=== PATIENT | female | born 1995 | race Two or more races ===

== ENCOUNTER 2024-03-09 04:41 | Day surgery (SDC) | payer OTHER ==
[2024-03-08 16:30] VITALS: BMI 38.2
[2024-03-09 11:54] VITALS: RESP 18
[2024-03-09 11:54] LABS: BASO % 0.8 % (0-2.0); EOS % 7.3 % (0-4.5); HEMOGLOBIN 13.4 GM/dL (10.7-15.3); LYMPH % 31.6 % (8-40); MCHC 33.6 g/dl (32.0-36.0); MEAN CELL VOLUME 80.3 fl (80-96); MEAN PLT VOLUME 7.9 fl (7.5-11.1); MONO % 5.5 % (3.8-10.2); NEUT % 54.8 % (42.8-82.8); PLATELET COUNT 403 10^3/uL (134-434); RBC 4.98 M/mm3 (3.60-5.2); RDW 14.3 % (11.6-15.6)
[2024-03-09 12:00] LABS: INR 1.05 (0.83-1.09); PROTHROMBIN TIME (PATIENT) 11.8 SEC (9.7-13.0)
[2024-03-09 12:02] LABS: ACTIVATED PTT 31.3 SECONDS (25.2-36.5)
[2024-03-09 12:09] LABS: CALCIUM 9.4 mg/dL (8.5-10.1)
[2024-03-09 12:12] LABS: CREATININE 0.7 mg/dL (0.55-1.3)
[2024-03-09 14:31] VITALS: BP 118/70; PULSE 68; TEMP 97.6
[2024-03-09 15:10] LABS: BF GLUCOSE (CSF ONLY) 50 mg/dL (40-70)
[2024-03-09 15:46] LABS: CSF APPEARANCE CLEAR (CLEAR); CSF COLOR COLORLESS (COLORLESS); CSF WBC 0 mm3 (0-5)
[2024-03-10 08:11] LABS: HOMOCYSTINE-PLASMA OR SERUM 12.5 umol/L (0.0-14.5)
[2024-03-13 17:06] LABS: ALPHA-2-GLOBULIN,CSF 4.2 % (2.7-8.2); BETA GLOBULIN,CSF 14.1 % (11.8-21.7); GAMMA GLOBULIN,CSF 13.3 % (2.8-8.5); M-SPIKE CSF Not Observed % (Not Observed); PRE-ALBUMIN CSF 2.9 % (2.2-7.7)
== END 2024-03-09 15:02 | disposition home or self-care (01) ==
LOC: JRADIR 04:41
PROVIDERS: ATTEND Psychiatry & Neurology Psychiatry
PROC: 00JU3ZZ Inspection of Spinal Canal, Percutaneous Approach (ICD-10-PCS; principal; 2024-03-09)
DX: R51.9 Headache, unspecified (principal)
CPT/HCPCS: 36415; 62272; 80048; 82306; 82607; 82784; 82945; 83090; 83873; 83916; 84157; 84166; 84703; 85025; 85610; 85730; 86780; 87070; 87205

== ENCOUNTER 2024-03-23 17:57 | Inpatient (IN) | payer OTHER ==
[2024-03-23 19:52] LABS: BASO % 2.2 % (0-2.0); EOS % 6.9 % (0-4.5); HEMATOCRIT 41.2 % (32.4-45.2); HEMOGLOBIN 13.8 GM/dL (10.7-15.3); LYMPH % 38.9 % (8-40); MCH 26.9 pg (25.7-33.7); MCHC 33.6 g/dl (32.0-36.0); MEAN CELL VOLUME 80.1 fl (80-96); MEAN PLT VOLUME 7.8 fl (7.5-11.1); MONO % 5.1 % (3.8-10.2); NEUT % 46.9 % (42.8-82.8); PLATELET COUNT 405 10^3/uL (134-434); RBC 5.14 M/mm3 (3.60-5.2); RDW 14.6 % (11.6-15.6); WHITE BLOOD COUNT 7.9 K/mm3 (4.0-10.0)
[2024-03-23] MEDS ORDERED: methylPREDNISolone NA SUCC 1000 MG/8 ML VIAL ONE (20:15)
[2024-03-23 20:18] LABS: POTASSIUM 3.9 mmol/L (3.5-5.1)
[2024-03-23 20:21] LABS: ALBUMIN 3.8 g/dl (3.4-5.0); BLOOD UREA NITROGEN 8.4 mg/dL (7-18); CALCIUM 9.1 mg/dL (8.5-10.1)
[2024-03-23 20:23] LABS: CREATININE 0.7 mg/dL (0.55-1.3)
[2024-03-23] MEDS: methylPREDNISolone NA SUCC 1000 MG/8 ML VIAL IVPB ONE (20:25)
[2024-03-23 20:26] LABS: BILIRUBIN,TOTAL 0.4 mg/dL (0.2-1); TOT PROT 8.1 g/dl (6.4-8.2)
[2024-03-23 22:19] LABS: URINE APPEARANCE CLEAR; URINE BILIRUBIN NEGATIVE (NEGATIVE); URINE COLOR YELLOW; URINE GLUCOSE (UA) NEGATIVE (NEGATIVE); URINE KETONE NEGATIVE (NEGATIVE); URINE LEUK ESTERASE NEGATIVE (NEGATIVE); URINE NITRITE NEGATIVE (NEGATIVE); URINE PROTEIN NEGATIVE (NEGATIVE); URINE UROBILINOGEN 0.2 mg/dL (0.2-1.0)
[2024-03-23] MEDS: TOPIRAMATE 25 MG TABLET PO SCH (23:18)
[2024-03-24 01:12] VITALS: BMI 38.7
[2024-03-24] MEDS: PATIENT'S OWN MEDICATION (NON-FORMULARY) (Rizatriptan Benzoate [Rizatriptan] 10 MG Tablet) PO SCH (03:41)
[2024-03-24 07:05] LABS: HEMATOCRIT 39.1 % (32.4-45.2); HEMOGLOBIN 13.3 GM/dL (10.7-15.3); MCH 27.3 pg (25.7-33.7); MEAN CELL VOLUME 80.1 fl (80-96); MEAN PLT VOLUME 7.8 fl (7.5-11.1); PLATELET COUNT 399 10^3/uL (134-434); RBC 4.88 M/mm3 (3.60-5.2); RDW 14.1 % (11.6-15.6)
[2024-03-24 07:25] LABS: POTASSIUM 3.9 mmol/L (3.5-5.1)
[2024-03-24 07:31] LABS: BLOOD UREA NITROGEN 10.2 mg/dL (7-18); CALCIUM 9.6 mg/dL (8.5-10.1)
[2024-03-24 07:32] LABS: MAGNESIUM 2.2 mg/dL (1.8-2.4)
[2024-03-24 07:35] LABS: CREATININE 0.7 mg/dL (0.55-1.3)
[2024-03-24] MEDS: PANTOPRAZOLE 40 MG TABLET PO SCH (16:06)
[2024-03-24] MEDS: INSULIN ASPART SLIDING SCALE (NOVOLOG) 1 VIAL SQ SCH (16:10)
[2024-03-24] MEDS: PATIENT'S OWN MEDICATION (NON-FORMULARY) (Rizatriptan Benzoate [Rizatriptan] 10 MG Tablet) PO PRN (17:44)
[2024-03-24] MEDS: DEXAMETHASONE SOD PHOSPHATE 4 MG/1 ML VIAL IVPUSH SCH (17:47)
[2024-03-27 09:09] LABS: BASO % 0.1 % (0-2.0); HEMATOCRIT 39.6 % (32.4-45.2); HEMOGLOBIN 12.9 GM/dL (10.7-15.3); LYMPH % 20.1 % (8-40); MCH 26.4 pg (25.7-33.7); MCHC 32.6 g/dl (32.0-36.0); MEAN PLT VOLUME 7.7 fl (7.5-11.1); MONO % 5.7 % (3.8-10.2); NEUT % 74.1 % (42.8-82.8); PLATELET COUNT 481 10^3/uL (134-434); RBC 4.89 M/mm3 (3.60-5.2); RDW 14.2 % (11.6-15.6); WHITE BLOOD COUNT 11.4 K/mm3 (4.0-10.0)
[2024-03-27 09:25] LABS: CHLORIDE 113 mmol/L (98-107); POTASSIUM 4.2 mmol/L (3.5-5.1); SODIUM 139 mmol/L (136-145)
[2024-03-27] MEDS: HEPARIN NA (PORCINE) 5,000 UNITS/ML 1ML VIAL SQ SCH (09:27)
[2024-03-27 09:28] LABS: ALBUMIN 3.3 g/dl (3.4-5.0); ANION GAP 3 mmol/L (4-13); CALCIUM 8.8 mg/dL (8.5-10.1); CO2 23 mmol/L (21-32); GLUCOSE,RANDOM 96 mg/dL (74-106); MAGNESIUM 2.3 mg/dL (1.8-2.4)
[2024-03-27 09:31] LABS: CREATININE 0.7 mg/dL (0.55-1.3); SGOT/AST 6 U/L (15-37); SGPT/ALT 23 U/L (13-61)
[2024-03-27 09:33] LABS: BILIRUBIN,TOTAL 0.3 mg/dL (0.2-1); TOT PROT 7.6 g/dl (6.4-8.2)
[2024-03-27 09:34] LABS: ALK PHOS 66 U/L (45-117)
[2024-03-27 10:48] LABS: ERYTHROCYTE SEDIMENTATION RATE 21 mm/hr (0-20)
[2024-03-27 14:23] VITALS: RESP 18
[2024-03-28] MEDS: POLYETHYLENE GLYCOL (HEALTHYLAX) 3350 17 GM PACKET PO PRN (06:25)
[2024-03-30 09:39] VITALS: BP 130/82; PULSE 95; TEMP 98.2
== END 2024-03-30 13:37 | disposition home or self-care (01) | DRG 43 ==
LOC: JER 17:57 → JERBED 22:00 → OBSVTOIN 23:02 → J5S 23:04
PROVIDERS: ADMIT Internal Medicine; ATTEND Family Medicine
DX: G35 Multiple sclerosis (principal); G43.909 Migraine, unspecified, not intractable, without status migrainosus; K59.00 Constipation, unspecified; E66.9 Obesity, unspecified; Z68.38 Body mass index [BMI] 38.0-38.9, adult
CPT/HCPCS: 36415; 80048; 80053; 81003; 82607; 82962; 83735; 85025; 85027; 85651; 86140; 87086; 93005; 93010; 97116-GP; 97161-GP; 99285-25; G0378; J1644

== ENCOUNTER 2024-12-02 15:41 | Emergency (ER) | payer OTHER ==
[2024-12-02 16:16] VITALS: BMI 29.1
[2024-12-02 17:22] LABS: HEMATOCRIT 38.5 % (32.4-45.2); HEMOGLOBIN 12.7 GM/dL (10.7-15.3); MCH 27.6 pg (25.7-33.7); MEAN CELL VOLUME 83.8 fl (80-96); RBC 4.59 M/mm3 (3.60-5.2); RDW 13.9 % (11.6-15.6)
[2024-12-02] MEDS ORDERED: METOCLOPRAMIDE HCL INJECTION 10 MG/2 ML VIAL ONE (17:26)
[2024-12-02] MEDS ORDERED: ACETAMINOPHEN INJECTION 100 ML ONE (17:26)
[2024-12-02 17:30] LABS: WHITE BLOOD COUNT 8.2 K/mm3 (4.0-10.0)
[2024-12-02] MEDS: SODIUM CHLORIDE 0.9% 500 ML INFUS.BAG IV ONE (17:36)
[2024-12-02] MEDS: METOCLOPRAMIDE HCL INJECTION 10 MG/2 ML VIAL IVPB ONE (17:37)
[2024-12-02 17:38] LABS: POTASSIUM 4.3 mmol/L (3.5-5.1)
[2024-12-02 17:41] LABS: ALBUMIN 3.7 g/dl (3.4-5.0)
[2024-12-02 17:44] LABS: CREATININE 0.8 mg/dL (0.55-1.3)
[2024-12-02 17:45] LABS: BILIRUBIN,TOTAL 0.4 mg/dL (0.2-1); TOT PROT 7.9 g/dl (6.4-8.2)
[2024-12-02] MEDS: ACETAMINOPHEN 1000 MG/100 ML BAG IVPB ONE (17:47)
[2024-12-02 17:56] LABS: PLATELET COUNT 366 10^3/uL (134-434)
[2024-12-02 18:51] LABS: ACTIVATED PTT 31.6 SECONDS (25.2-36.5); INR 1.19 (0.83-1.09); PROTHROMBIN TIME (PATIENT) 13.6 SEC (9.7-13.0)
[2024-12-02 19:21] LABS: CHLORIDE 109 mmol/L (98-107); POTASSIUM 3.5 mmol/L (3.5-5.1); SODIUM 138 mmol/L (136-145)
[2024-12-02 19:23] LABS: ANION GAP 7 mmol/L (4-13); BLOOD UREA NITROGEN 9.8 mg/dL (7-18); CALCIUM 9.1 mg/dL (8.5-10.1); CO2 22 mmol/L (21-32); GLUCOSE,RANDOM 78 mg/dL (74-106)
[2024-12-02 19:27] LABS: CREATININE 0.8 mg/dL (0.55-1.3)
[2024-12-02 20:57] VITALS: RESP 18
[2024-12-02] MEDS ORDERED: IBUPROFEN 400 MG TABLET (FP) PO ONE (23:00)
[2024-12-02] MEDS: IBUPROFEN 400 MG TABLET (FP) PO ONE ×2 (23:02→23:03)
[2024-12-03 02:08] VITALS: BP 95/68; PULSE 90; TEMP 98.9
== END 2024-12-03 03:50 | disposition home or self-care (01) ==
LOC: JER 15:41
PROC: 3E033NZ Introduction of Analgesics, Hypnotics, Sedatives into Peripheral Vein, Percutaneous Approach (ICD-10-PCS; principal; 2024-12-02)
PROC: 3E033GC Introduction of Other Therapeutic Substance into Peripheral Vein, Percutaneous Approach (ICD-10-PCS; 2024-12-02)
DX: J10.1 Influenza due to other identified influenza virus with other respiratory manifestations (principal); R05.9 Cough, unspecified; R09.81 Nasal congestion; R53.1 Weakness; R42 Dizziness and giddiness; G43.909 Migraine, unspecified, not intractable, without status migrainosus; Z20.822 Contact with and (suspected) exposure to COVID-19
CPT/HCPCS: 0241U-QW; 36415; 70450-TC; 71045-TC-FY; 80048; 80053; 84484; 84702; 85027; 85610; 85730; 93005; 93010; 99285-25; J0131

== ENCOUNTER 2025-05-21 12:01 | Day surgery (SDC) | payer OTHER ==
[2025-05-21] MEDS: FERRIC CARBOXYMALTOSE 750 MG in SODIUM CHLORIDE 250 ML IVPB ONE (12:30)
[2025-05-21 13:27] VITALS: BP 102/77; PULSE 85; RESP 18; TEMP 98.2
== END 2025-05-21 13:27 | disposition home or self-care (01) ==
LOC: FINFUSION 12:01 → FM/S 12:02 → FINFUSION 13:27
PROVIDERS: ATTEND Family Medicine
PROC: 3E033GC Introduction of Other Therapeutic Substance into Peripheral Vein, Percutaneous Approach (ICD-10-PCS; principal; 2025-05-21)
DX: D50.9 Iron deficiency anemia, unspecified (principal)
CPT/HCPCS: 96365; J1439